=== PATIENT | female | born 1955 | race Caucasian/White ===

== ENCOUNTER 2016-07-09 08:15 | Emergency (ER) | payer BC ==
--- NOTE | 2016-07-09 08:39 | EDM.PDOC ---
ED HPI EYE COMPLAINT - General Chief Complaint: Eye Problems Stated Complaint: COLD Time Seen by Provider: 07/09/16 08:34 - History of Present Illness INITIAL COMMENTS - FREE TEXT/NARRATIVE: HISTORY AND PHYSICAL: History of present illness: Patient 61-year-old female presents with concern of irritation redness to right eye she states this started on Sunday she had a recent cold. Review of systems: As per history of present illness and below otherwise all systems reviewed and negative. Past medical history: As per history of present illness and as reviewed below otherwise noncontributory. Surgical history: As per history of present illness and as reviewed below otherwise noncontributory. Social history: No reported history of drug or alcohol abuse. Family history: As per history of present illness and as reviewed below otherwise noncontributory. Physical exam: HEENT: Atraumatic, normocephalic, pupils reactive, negative for conjunctival pallor or scleral icterus, patient noted to have injected conjunctiva on right no discharge anterior chamber clear mucous membranes moist, throat clear, neck supple, nontender, trachea midline. See nurse Notes for visual acuity Lungs: Clear to auscultation, breath sounds equal bilaterally, chest nontender. Heart: S1S2, regular, negative for clicks, rubs, or JVD. Abdomen: Soft, nondistended, nontender. Negative for masses or hepatosplenomegaly. Negative for costovertebral tenderness. Pelvis: Stable nontender. Genitourinary: Deferred. Rectal: Deferred. Extremities: Atraumatic, negative for cords or calf pain. Neurovascular unremarkable. Neuro: Awake, alert, oriented. Cranial nerves II through XII unremarkable. Cerebellum unremarkable. Motor and sensory unremarkable throughout. Exam nonfocal. Diagnostics: None Therapeutics: None Impression: #1 conjunctivitis right eye Definitive disposition and diagnosis as appropriate pending reevaluation and review of above. - Related Data Allergies/ADRs: Allergies No Known Allergies Allergy (Verified 07/09/16 08:20) Home Meds: Ambulatory Orders Medication Instructions Recorded Confirmed Multivitamin [Multi-Vitamin Daily] 1 each PO DAILY 08/05/13 07/09/16 Calcium Carbonate/Vitamin D3 1 tab PO DAILY 11/05/15 07/09/16 [Calcium 600-Vit D3 400 Tablet] Penny [place]/Linoleic/Gamoleni 1 cap PO DAILY 11/05/15 07/09/16 [Evening [place] 1,000 mg Sftg] Vit D3 & K/Berberine HCl/Hops 1 tab PO DAILY 11/05/15 07/09/16 [Ostera] Past Medical History Other HEENT History: wears glasses Cardiovascular History: Reports: None Respiratory History: Reports: None Gastrointestinal History: Reports: None Genitourinary History: Reports: None 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 Musculoskeletal History: Reports: None Neurological History: Reports: None Psychiatric History: Reports: None Endocrine/Metabolic History: Reports: None Hematologic History: Reports: None Immunologic History: Reports: None Oncologic (Cancer) History: Reports: None Other Oncologic History: removed x3, chest and back Dermatologic History: Reports: None - Infectious Disease History Infectious Disease History: Reports: None - Past Surgical History Head Surgeries/Procedures: Reports: None Respiratory Surgical History: Reports: None GI Surgical History: Reports: Colonoscopy Other Female Surgeries/Procedures: Laparoscopy Endocrine Surgical History: Reports: None Neurological Surgical History: Reports: None Other Musculoskeletal Surgeries/Procedures:: bilateral CTR Social & Family History - Family History Family Medical History: Noncontributory - Tobacco Use Smoking Status *Q: Never Smoker Second Hand Smoke Exposure: No - Caffeine Use Caffeine Use: Reports: Coffee Caffeine Use Comment: 1-2/day - Alcohol Use Days Per Week of Alcohol Use: 1 - Recreational Drug Use Recreational Drug Use: No Drug Use in Last 12 Months: No ED ROS GENERAL - Review of Systems Review Of Systems: ROS reveals no pertinent complaints other than HPI. ED EXAM GENERAL W FULL EYE - Physical Exam Exam: See Below Course - Vital Signs Last Recorded V/S: Last Vital Signs Temp 36.9 C 07/09/16 08:17 Pulse 86 07/09/16 08:17 Resp 16 07/09/16 08:17 BP 121/71 07/09/16 08:17 Pulse Ox 96 07/09/16 08:17 Departure - Departure Time of Disposition: 08:38 Disposition: Home, Self-Care 01 Condition: good Clinical Impression: Conjunctivitis Forms: ED Department Discharge Additional Instructions: The following information is given to patients seen in the emergency department who are being discharged to home. This information is to outline your options for follow-up care. We provide all patients seen in our emergency department with a follow-up referral. The need for follow-up, as well as the timing and circumstances, are variable depending upon the specifics of your emergency department visit. If you don't have a primary care physician on staff, we will provide you with a referral. We always advise you to contact your personal physician following an emergency department visit to inform them of the circumstance of the visit and for follow-up with them and/or the need for any referrals to a consulting specialist. The emergency department will also refer you to a specialist when appropriate. This referral assures that you have the opportunity for followup care with a specialist. All of these measure are taken in an effort to provide you with optimal care, which includes your followup. Under all circumstances we always encourage you to contact your private physician who remains a resource for coordinating your care. When calling for followup care, please make the office aware that this follow-up is from your recent emergency room visit. If for any reason you are refused follow-up, please contact the [facility] emergency department at and asked to speak to the emergency department charge nurse. Tobramycin drops as directed followup primary medical doctor one to 2 days return as needed as discussed
== END 2016-07-09 08:45 | disposition home or self-care (01) ==
LOC: MW.ED 08:15
DX: H10.9 Unspecified conjunctivitis (principal)
CPT/HCPCS: 99283

== ENCOUNTER → 2016-09-18 | Outpatient (CLI) | payer BC ==
--- NOTE | 2016-09-18 16:04 | MY ---
EXAMINATION: Bilateral digital mammography utilizing CAD. HISTORY: Screening exam. Comparison is made to previous studies dated 09/16/2015, 05/14/2014. FINDINGS: Bilateral heterogeneously dense breast tissue. No suspicious calcifications, masses or ar chitectural distortions. No pathologic appearing lymph nodes, no abnormal skin thickening or nipple inversion. CAD highlighted regions appear normal at this time. IMPRESSION: BI-RADS category I - negative mammogram. Continued screening according to ACR-ACS gu idelines suggested. THE FALSE-NEGATIVE RATE OF MAMMOGRAM IS APPROXIMATELY 10%. MANAGEMENT OF A PALPABLE ABNORMALITY MUST BE BASED UPON CLINICAL GROUNDS. SENSITIVITY FOR DETECTION OF ABNORMALITIES IN DENSE BREASTS IS LOW. NOTE: A letter will be sent to the patient regarding findings. [facility] -- SAPNA Trejo [phone] - FAX [phone]
== END ==
LOC: MW.MAM 08:35
PROVIDERS: ATTEND Obstetrics & Gynecology
DX: Z12.31 Encounter for screening mammogram for malignant neoplasm of breast (principal)
CPT/HCPCS: G0202; G0202-26

== ENCOUNTER 2017-04-05 01:05 | Emergency (ER) | payer BC ==
--- NOTE | 2017-04-05 01:15 | EDM.PDOC ---
ED HPI GENERAL MEDICAL PROBLEM - General Chief Complaint: Lower Extremity Injury/Pain Stated Complaint: PAIN RT TOE Time Seen by Provider: 04/05/17 01:15 - History of Present Illness INITIAL COMMENTS - FREE TEXT/NARRATIVE: HISTORY AND PHYSICAL: History of present illness: Patient 61-year-old white female presents with concern of acute right foot injury in which he injured fourth digit over right foot this was prior to arrival she denies other trauma or concern Review of systems: As per history of present illness and below otherwise all systems reviewed and negative. Past medical history: As per history of present illness and as reviewed below otherwise noncontributory. Surgical history: As per history of present illness and as reviewed below otherwise noncontributory. Social history: No reported history of drug or alcohol abuse. Family history: As per history of present illness and as reviewed below otherwise noncontributory. Physical exam: HEENT: Atraumatic, normocephalic, pupils reactive, negative for conjunctival pallor or scleral icterus, mucous membranes moist, throat clear, neck supple, nontender, trachea midline. Lungs: Clear to auscultation, breath sounds equal bilaterally, chest nontender. Heart: S1S2, regular, negative for clicks, rubs, or JVD. Abdomen: Soft, nondistended, nontender. Negative for masses or hepatosplenomegaly. Negative for costovertebral tenderness. Pelvis: Stable nontender. Genitourinary: Deferred. Rectal: Deferred. Extremities: Patient has tenderness to palpation of the fourth digit with a slight deformity suggestive of fracture neurovascular exam is unremarkable. Neuro: Awake, alert, oriented. Cranial nerves II through XII unremarkable. Cerebellum unremarkable. Motor and sensory unremarkable throughout. Exam nonfocal. Diagnostics: X-ray right foot Therapeutics: Raman tape postop shoe Impression: #1 acute injury right foot (fourth digit) Definitive disposition and diagnosis as appropriate pending reevaluation and review of above. - Related Data Allergies Allergy/AdvReac Type Severity Reaction Status Date / Time No Known Allergies Allergy Verified 04/05/17 01:12 Home Meds: Home Meds Multivitamin [Multi-Vitamin Daily] 1 each PO DAILY 08/05/13 [History] Calcium Carbonate/Vitamin D3 [Calcium 600-Vit D3 400 Tablet] 1 tab PO DAILY 05/22 [History] Penny [place]/Linoleic/Gamoleni [Evening [place] 1,000 mg Sftg] 1 cap PO DAILY 11/05/15 [History] Vit D3 & K/Berberine HCl/Hops [Ostera] 1 tab PO DAILY 11/05/15 [History] Past Medical History Other HEENT History: wears glasses Cardiovascular History: Reports: None Respiratory History: Reports: None Gastrointestinal History: Reports: None Genitourinary History: Reports: None 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: Reports: 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 Musculoskeletal History: Reports: None Neurological History: Reports: None Psychiatric History: Reports: None Endocrine/Metabolic History: Reports: None Hematologic History: Reports: None Immunologic History: Reports: None Oncologic (Cancer) History: Reports: None Other Oncologic History: removed x3, chest and back Dermatologic History: Reports: None - Infectious Disease History Infectious Disease History: Reports: None - Past Surgical History Female Surgical History: Reports: Hysterectomy, Oophorectomy, Other (See Below) Musculoskeletal Surgical History: Reports: Carpal Tunnel Social & Family History - Family History Family Medical History: Noncontributory - Tobacco Use Smoking Status *Q: Never Smoker Second Hand Smoke Exposure: No - Caffeine Use Caffeine Use: Reports: Coffee Caffeine Use Comment: 1-2/day - Alcohol Use Days Per Week of Alcohol Use: 1 - Recreational Drug Use Recreational Drug Use: No Drug Use in Last 12 Months: No Review of Systems - Review of Systems Review Of Systems: ROS reveals no pertinent complaints other than HPI. ED EXAM, GENERAL - Physical Exam Exam: See Below (See dictation) Course - Vital Signs Last Recorded V/S: Last Vital Signs Temp 36.2 C 04/05/17 01:13 Pulse 70 04/05/17 01:13 Resp 18 04/05/17 01:13 BP 138/74 04/05/17 01:13 Pulse Ox 98 04/05/17 01:13 - Orders/Labs/Meds Orders: Active Orders 24 hr Category Date Time Status Foot Comp Min 3V Rt [CR] Stat Exams 04/05/17 01:09 Taken Departure - Departure Time of Disposition: 01:15 Disposition: Home, Self-Care 01 Condition: Good Clinical Impression: Foot injury - Discharge Information Referrals: PCP,None [Primary Care Provider] - Forms: ED Department Discharge Additional Instructions: The following information is given to patients seen in the emergency department who are being discharged to home. This information is to outline your options for follow-up care. We provide all patients seen in our emergency department with a follow-up referral. The need for follow-up, as well as the timing and circumstances, are variable depending upon the specifics of your emergency department visit. If you don't have a primary care physician on staff, we will provide you with a referral. We always advise you to contact your personal physician following an emergency department visit to inform them of the circumstance of the visit and for follow-up with them and/or the need for any referrals to a consulting specialist. The emergency department will also refer you to a specialist when appropriate. This referral assures that you have the opportunity for followup care with a specialist. All of these measure are taken in an effort to provide you with optimal care, which includes your followup. Under all circumstances we always encourage you to contact your private physician who remains a resource for coordinating your care. When calling for followup care, please make the office aware that this follow-up is from your recent emergency room visit. If for any reason you are refused follow-up, please contact the [facility] emergency department at and asked to speak to the emergency department charge nurse. Bebo Guerrero [facility] - Podiatry [address] [place] [address] Fax: [phone] Motrin/Tylenol as directed postop she was discussed follow-up podiatry clinic above call to schedule appointment return as needed as discussed - My Orders Last 24 Hours: My Active Orders 04/05/17 01:09 Foot Comp Min 3V Rt [CR] Stat - Assessment/Plan Last 24 Hours: My Active Orders 04/05/17 01:09 Foot Comp Min 3V Rt [CR] Stat
[2017-04-05 02:10] VITALS: BP 127/73
--- NOTE | 2017-04-05 10:39 | CR ---
EXAM DATE: 04/05/17 PATIENT'S AGE: 61 Patient: DARA CAROLINA Facility: [place], [place] Site . Site : 1955 Study: XRay Extremity Right [id number]/30/2017 1:33:08 AM Ordering Physician: Doctor Giordano Final Report: INDICATION: Trauma 4th and 5th digits right foot TECHNIQUE: Three views right foot COMPARISON: None FINDINGS: Bones: Alignment is normal. Though definitive fractures. However questionable angulation of the distal proximal phalanx of the 4th digit. Correlate with point tenderness. Joint spaces: Unremarkable. Soft tissues: Unremarkable. IMPRESSION: No definitive fractures. However questionable angulation of the distal proximal phalanx of the 4th digit. Correlate with point tenderness. Dictated by Jaime Doll MD @ 04/05/2017 1:39:52 AM Dictated by: Jaime Doll MD @ 04/05/2017 01:40:01 (Electronic Signature) Report Signed by Proxy. JAVY
== END 2017-04-05 02:14 | disposition home or self-care (01) ==
LOC: MW.ED 01:05
DX: S99.921A Unspecified injury of right foot, initial encounter (principal); X58.XXXA Exposure to other specified factors, initial encounter
CPT/HCPCS: 73630-26-RT; 73630-RT; 99282; 99283

== ENCOUNTER 2018-09-03 08:23 | Day surgery (SDC) | payer BC ==
[~2018-09-03 08:23] MED LIST: Sodium Chloride 0.9% 10 ML SDV IV PRN; Sodium Chloride 0.9% 10 ML Syringe FLUSH PRN; Sodium Chloride 0.9% 2.5 ML Syringe FLUSH PRN
[2018-09-03] MEDS: Lactated Ringers 1,000 ML IV SCH ×2 (08:51→08:52)
--- NOTE | 2018-09-03 09:23 | PCM.PREANE ---
Preanesthetic Assessment - Anesthesia/Transfusion/Family Hx Anesthesia History: Prior Anesthesia Reaction Other Type of Anesthesia Reaction Comment: Patient denies any known problem with anesthesia,no known fmly hx Family History of Anesthesia Reaction: No Transfusion History: No Prior Transfusion(s) - Review of Systems General: No Symptoms Pulmonary: No Symptoms Cardiovascular: No Symptoms Gastrointestinal: No Symptoms Neurological: No Symptoms - Physical Assessment NPO Status Date: 09/02/18 NPO Status Time: 21:00 O2 Sat by Pulse Oximetry: 99 Respiratory Rate: 16 Vital Signs: Last Vital Signs Temp 97.7 F 09/03/18 08:46 Pulse 67 09/03/18 08:46 Resp 16 09/03/18 08:46 BP 110/67 09/03/18 08:46 Pulse Ox 99 09/03/18 08:46 Height: 5 ft 4 in Weight: 68.946 kg ASA Class: 2 Mental Status: Alert & Oriented x3 Airway Class: Mallampati = 2 Dentition: Reports: Normal Dentition Thyro-Mental Finger Breadths: 3 Mouth Opening Finger Breadths: 3 ROM/Head Extension: Full Lungs: Clear to Auscultation, Normal Respiratory Effort Cardiovascular: Regular Rate, Regular Rhythm - Allergies Allergies/Adverse Reactions: Allergies Allergy/AdvReac Type Severity Reaction Status Date / Time adhesive tape Allergy Rash Verified 08/30/18 14:25 - Acknowledgements Anesthesia Type Planned: MAC Pt an Appropriate Candidate for the Planned Anesthesia: Yes Alternatives and Risks of Anesthesia Discussed w Pt/Guardian: Yes Pt/Guardian Understands and Agrees with Anesthesia Plan: Yes PreAnesthesia Questionnaire HEENT History: Reports: Other (See Below) Other HEENT History: wears glasses, has artificial left upper front tooth Cardiovascular History: Reports: None Respiratory History: Reports: None Gastrointestinal History: Reports: None Genitourinary History: Reports: None 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 Musculoskeletal History: Reports: Fracture Other Musculoskeletal History: hx of fx toe Neurological History: Reports: None Psychiatric History: Reports: None Endocrine/Metabolic History: Reports: None Hematologic History: Reports: None Immunologic History: Reports: None Oncologic (Cancer) History: Reports: Basal Cell Carcinoma Other Oncologic History: several skin cancers removed Dermatologic History: Reports: None - Infectious Disease History Infectious Disease History: Reports: None - Past Surgical History Head Surgeries/Procedures: Reports: None HEENT Surgical History: Reports: None Respiratory Surgical History: Reports: None GI Surgical History: Reports: Colonoscopy Female Surgical History: Reports: Cystectomy, Hysterectomy, Other (See Below) Other Female Surgeries/Procedures: hx of pelvic laparoscopies x2 Endocrine Surgical History: Reports: None Neurological Surgical History: Reports: None Musculoskeletal Surgical History: Reports: Carpal Tunnel, Other (See Below) Other Musculoskeletal Surgeries/Procedures:: bilateral CTR, de Quervains release right hand Oncologic Surgical History: Reports: None - SUBSTANCE USE Smoking Status *Q: Never Smoker Recreational Drug Use History: No - HOME MEDS Home Medications: Home Meds Calcium Carbonate/Vitamin D3 [Calcium 600-Vit D3 400 Tablet] 1 tab PO DAILY 05/22 [History] Biotin 1 tab PO DAILY 08/30/18 [History] Cholecalciferol (Vitamin D3) [Vitamin D3] 1,000 unit PO DAILY 08/30/18 [History] Multivitamin [Daily Multiple Vitamin] 1 tab PO DAILY 08/30/18 [History] - CURRENT (IN HOUSE) MEDS Current Meds: Current Medications Lactated Ringer's (Ringers, Lactated) 1,000 mls @ 125 mls/hr IV ASDIRECTED [facility] Last Admin: 09/03/18 08:52 Dose: 125 mls/hr Sodium Chloride (Saline Flush) 10 ml FLUSH ASDIRECTED PRN PRN Reason: Keep Vein Open Sodium Chloride (Saline Flush) 2.5 ml FLUSH ASDIRECTED PRN PRN Reason: Keep Vein Open Sodium Chloride (Saline Flush) 10 ml FLUSH ASDIRECTED PRN PRN Reason: Keep Vein Open Sodium Chloride (Saline Flush) 2.5 ml FLUSH ASDIRECTED PRN PRN Reason: Keep Vein Open Sodium Chloride (Normal Saline) 10 ml IV ASDIRECTED PRN PRN Reason: IV Use
[2018-09-03] MEDS ORDERED: Propofol 200 MG/20 ML SDV ONE (10:28)
[2018-09-03] MEDS ORDERED: Midazolam 1 MG/ML 2 ML SDV ONE (11:21)
--- NOTE | 2018-09-03 11:38 | PCM.OPNOTE ---
- General Post-Op/Procedure Note Date of Surgery/Procedure: 09/03/18 Operative Procedure(s): Screening colonoscopy Findings: Sigmoid colon polyp #1 small, sigmoid colon polyp #2 ~ 1cm in size and on a stalk Pre Op Diagnosis: screening colonoscopy Post-Op Diagnosis: Sigmoid colon polyps x 2 Anesthesia Technique: MAC Primary Surgeon: Joselyn Jennings Condition: Good
--- NOTE | 2018-09-03 11:52 | PCM.POSTAN ---
POST ANESTHESIA ASSESSMENT - MENTAL STATUS Mental Status: Alert, Oriented - RESPIRATORY Respiratory Status: Respiratory Rate WNL, Airway Patent, O2 Saturation Stable - CARDIOVASCULAR CV Status: Pulse Rate WNL, Blood Pressure Stable - GASTROINTESTINAL GI Status: No Symptoms - POST OP HYDRATION Hydration Status: Adequate & Stable
--- NOTE | 2018-09-03 11:54 | PCM48HPAN ---
Post Anesthesia Note - EVALUATION WITHIN 48HRS OF ANESTHETIC Vital Signs in Normal Range: Yes Patient Participated in Evaluation: Yes Respiratory Function Stable: Yes Airway Patent: Yes Cardiovascular Function Stable: Yes Hydration Status Stable: Yes Pain Control Satisfactory: Yes Nausea and Vomiting Control Satisfactory: Yes Mental Status Recovered: Yes Pulse Rate: 52 SaO2: 97 Resp Rate: 15 Blood Pressure: 106/62
[2018-09-03 12:04] VITALS: BP 114/62
--- NOTE | 2018-09-03 17:00 | OR ---
SURGEON: YUVAL STOUT MD DATE OF PROCEDURE: 09/03/2018 PREOPERATIVE DIAGNOSIS: Screening colonoscopy. POSTOPERATIVE DIAGNOSIS: Sigmoid colon polyps x2. PROCEDURE PERFORMED: Screening colonoscopy with biopsies. ANESTHESIA: MAC. INSTRUMENT USED: Olympus colonoscope. EXTENT OF EXAM: To the cecum. PREPARATION: Good. LIMITATIONS: None. INDICATION FOR EXAMINATION: The patient is a 63-year-old female who presents for a repeat 10-year colonoscopy. I explained the procedure, expected perioperative course, and risks including bleeding, infection, or damage to surrounding structures including perforation. The patient verbalized understanding and wishes to proceed. PROCEDURE IN DETAIL: The patient was brought into the endoscopy suite and placed in the left lateral decubitus position. A time-out was completed verifying the patient's name, age, date of , allergies, and procedure to be performed. Monitored anesthesia care was induced and continuous oxygen was provided via nasal cannula throughout the procedure. After adequate sedation was achieved, a digital rectal exam was performed. This exam was within normal limits. A well lubricated colonoscope was inserted into the rectum and advanced under direct visualization to the level of the cecum. The cecum was identified by both visual and anatomic landmarks. A photograph was taken of the cecal cap; however I was unable to retroflex the scope within the cecum due to looping of the scope more proximally. The scope was fully withdrawn while examining the color, texture, anatomy, and integrity of the mucosa from the cecum to the anal canal. The patient was found to have an approximately 1 cm pedunculated polyp on a stalk at 25 cm. This was removed using a hot snare. It was sent to Pathology, labeled as sigmoid colon polyp #2. She did have a smaller polyp that was removed in piecemeal fashion using a cold biopsy forceps that was distal to this and was labeled as sigmoid colon polyp #1. The scope was then brought into the rectum and retroflexed to allow visualization of the anal canal opening. This appeared normal and a photograph was taken. The scope was straightened out and fully withdrawn. The cecum to anus time was 11 minutes. The patient tolerated the procedure well and was transferred to the PACU in stable condition. ENDOSCOPIC DIAGNOSIS: Sigmoid colon polyps x2. RECOMMENDATIONS: Follow up in clinic in 2 weeks. NICCI HAYNES /[id number]
== END 2018-09-03 12:20 | disposition home or self-care (01) ==
LOC: MW.SDS 08:23
PROVIDERS: ATTEND Surgery
DX: Z12.11 Encounter for screening for malignant neoplasm of colon (principal); D12.5 Benign neoplasm of sigmoid colon; K63.5 Polyp of colon; Z86.39 Personal history of other endocrine, nutritional and metabolic disease; Z91.048 Other nonmedicinal substance allergy status
CPT/HCPCS: 45380; 45385; 88305; J2001; J2250; J2704; J7120

== ENCOUNTER 2019-12-22 17:37 | Emergency (ER) | payer BC ==
[2019-12-22] MEDS ORDERED: Acetaminophen/oxyCODONE 325-5 MG Tab PO ONE (17:55)
--- NOTE | 2019-12-22 18:00 | EDM.PDOC ---
ED HPI GENERAL MEDICAL PROBLEM - General Stated Complaint: RIGHT ARM INJURY Time Seen by Provider: 12/22/19 17:42 Source of Information: Reports: Patient History Limitations: Reports: No Limitations - History of Present Illness INITIAL COMMENTS - FREE TEXT/NARRATIVE: 64F presents after a fall. Fell down two steps landing on R arm. Currently notes pain in upper R arm and numb/tingling sensation. Denies hitting head or LOC. Not on any blood thinning medications. right shoulder/elbow Pain Score (Numeric/FACES): 10 - Related Data Allergies Allergy/AdvReac Type Severity Reaction Status Date / Time adhesive tape Allergy Rash Verified 12/22/19 18:16 Home Meds: Home Meds Calcium Carbonate/Vitamin D3 [Calcium 600-Vit D3 400 Tablet] 1 tab PO DAILY 11/05/15 [History] Biotin 1 tab PO DAILY 08/30/18 [History] Cholecalciferol (Vitamin D3) [Vitamin D3] 1,000 unit PO DAILY 08/30/18 [History] Multivitamin [Daily Multiple Vitamin] 1 tab PO DAILY 08/30/18 [History] Acetaminophen/oxyCODONE [Percocet 325-5 MG] 1 tab PO Q4H PRN #18 tab 12/22/19 [Rx] Ibuprofen [Motrin] 600 mg PO Q6H PRN 10 Days #28 tab 12/22/19 [Rx] Past Medical History HEENT History: Reports: None Other HEENT History: wears glasses Cardiovascular History: Reports: None Respiratory History: Reports: None Gastrointestinal History: Reports: None Genitourinary History: Reports: None REGISTERED NURSE STEP DOWN History: Reports: None Musculoskeletal History: Reports: None Other Musculoskeletal History: Tendonitis Neurological History: Reports: None Psychiatric History: Reports: None Endocrine/Metabolic History: Reports: None Hematologic History: Reports: None Immunologic History: Reports: None Oncologic (Cancer) History: Reports: None Other Oncologic History: removed x3, chest and back Dermatologic History: Reports: None - Infectious Disease History Infectious Disease History: Reports: None - Past Surgical History Female Surgical History: Reports: Hysterectomy, Oophorectomy, Other (See Below) Other Female Surgeries/Procedures: Laparoscopy Musculoskeletal Surgical History: Reports: Carpal Tunnel Other Musculoskeletal Surgeries/Procedures:: bilateral CTR Social & Family History - Family History Family Medical History: Noncontributory - Caffeine Use Caffeine Use: Reports: Coffee Caffeine Use Comment: 1-2/day ED ROS GENERAL - Review of Systems Review Of Systems: Comprehensive ROS is negative, except as noted in HPI. 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 ) Neurological: Alert Psychiatric: Normal Affect, Normal Mood Skin Exam: Warm, Dry ED GENERAL MEDICAL PROCEDURES - Joint Reduction Right Shoulder Sedation: Other (fentanyl 100mch) Pre-procedure NV status: Normal Post-procedure NV status: Normal Technique: Traction/Counter Traction Number of Attempts: 2 Post-Reduction Imaging: Acceptably Reduced, Unacceptably Reduced Joint Reduction Complications: No - Splinting Right Upper Extremity Pre-procedure NV status: Abnormal (abnormal sensation R 5th and 4th digits consisetn with ulnar N injury) Post-procedure NV status: Normal Splint Type: Custom Splint Material: Fiberglass Splint Design: Other (long arm) Applied & Form Fitted By: Nurse Provider Post-Splint Application NV Check: NV Status Normal, Good Position Complications: No Course - Vital Signs Last Recorded V/S: Last Vital Signs Temp 95.9 F L 12/22/19 18:24 Pulse 69 12/22/19 19:41 Resp 16 12/22/19 19:41 BP 156/80 H 12/22/19 19:41 Pulse Ox 100 12/22/19 19:41 - Orders/Labs/Meds Orders: Active Orders 24 hr Category Date Time Status Splinting [RC] ASDIRECTED Care 12/22/19 18:47 Active Shoulder 1V Rt [CR] Stat Exams 12/22/19 19:12 Ordered Shoulder 1V Rt [CR] Stat Exams 12/22/19 19:34 Ordered DME for Discharge [COMM] Stat Oth 12/22/19 18:46 Ordered Meds: Medications Discontinued Medications Generic Name Dose Route Start Last Admin Trade Name Freq PRN Reason Stop Dose Admin Fentanyl 100 mcg 12/22/19 18:45 12/22/19 18:57 Fentanyl IVPUSH 12/22/19 18:46 100 mcg ONETIME ONE Administration Fentanyl 100 mcg 12/22/19 19:22 12/22/19 19:27 Fentanyl IVPUSH 12/22/19 19:23 100 mcg ONETIME ONE Administration Oxycodone/Acetaminophen 1 tab 12/22/19 17:55 12/22/19 18:04 Percocet 325-5 Mg PO 12/22/19 17:56 1 tab ONETIME ONE Administration - Re-Assessments/Exams Free Text/Narrative Re-Assessment/Exam: 12/22/19 18:00 Pt presents with R arm injury. Will get humerus XR and reassess. Free Text/Narrative Re-Assessment/Exam: 12/22/19 18:[address] Donte France at [facility] who notes fracture/dislocation of glenohumeral joint will likely require surgical repair but can be reduced as typical shoulder dislocation and placed in long arm splint/shoudler immobilizer w/ f/u in his office sometime this week. 12/22/19 19:43 Initial relocation was successful, but it dislocated again during splitn application. Additional attempt was made and unsuccessful. Will transfer to Dr. Armas at [facility] with Rom[facility] consulting. Patient agreeable with plan. Departure - Departure Time of Disposition: 19:42 Disposition: DC/Tfer to Acute Hospital 02 Condition: Good Clinical Impression: Fracture of elbow Qualifiers: Encounter type: initial encounter Fracture type: closed Laterality: right Qualified Code(s): S42.401A - Unspecified fracture of lower end of right humerus, initial encounter for closed fracture Shoulder dislocation Qualifiers: Encounter type: initial encounter Laterality: right Qualified Code(s): S43.004A - Unspecified dislocation of right shoulder joint, initial encounter - Discharge Information Prescriptions: Ibuprofen [Motrin] 600 mg PO Q6H PRN 10 Days #28 tab PRN Reason: Pain Acetaminophen/oxyCODONE [Percocet 325-5 MG] 1 tab PO Q4H PRN #18 tab PRN Reason: Pain Instructions: How to Use a Shoulder Immobilizer, Shoulder Dislocation, [id number] Referrals: Donte France [Other] Additional Instructions: Transfer to [place] Sepsis Event Note (ED) - Focused Exam Vital Signs: Vital Signs Temp Pulse Resp BP Pulse Ox 08/17/20 19:41 69 16 156/80 H 100 12/22/19 19:18 61 16 153/80 H 100 12/22/19 18:24 95.9 F L 56 L 20 112/60 95 - My Orders Last 24 Hours: My Active Orders 12/22/19 18:46 DME for Discharge [COMM] Stat 12/22/19 18:47 Splinting [RC] ASDIRECTED 12/22/19 19:12 Shoulder 1V Rt [CR] Stat 12/22/19 19:34 Shoulder 1V Rt [CR] Stat - Assessment/Plan Last 24 Hours: My Active Orders 12/22/19 18:46 DME for Discharge [COMM] Stat 12/22/19 18:47 Splinting [RC] ASDIRECTED 12/22/19 19:12 Shoulder 1V Rt [CR] Stat 12/22/19 19:34 Shoulder 1V Rt [CR] Stat
--- NOTE | 2019-12-22 18:34 | CR ---
Right humerus: 2 views of the right humerus were obtained. Lateral view of the right elbow also obtained. Findings: Dislocation is noted within the humerus. Fracture is noted off the humeral head which shows displacement. Olecranon process fracture is seen which shows displacement. Soft tissue swelling is noted. Impression: 1. Fracture dislocation within the glenohumeral joint. 2. Displaced olecranon process fracture also noted. Diagnostic code #5 This report was dictated in MDT
[2019-12-22] MEDS ORDERED: fentaNYL 50 MCG/ML SDV IVPUSH ONE ×2 (18:45→19:22)
[2019-12-22 19:42] VITALS: BP 156/80; PULSE 69
--- NOTE | 2019-12-22 20:03 | CR ---
Right shoulder: Single AP portable view of the right shoulder was obtained. Comparison: Prior right humerus study performed earlier on the same day (6:05 PM). Fracture and dislocation is again noted within the proximal humeral head. No reduction is seen. Impression: 1. Stable fracture and dislocation. No reduction. Diagnostic code #3 This report was dictated in MDT
--- NOTE | 2019-12-22 20:04 | CR ---
Right shoulder: Single AP view of the right shoulder was obtained. Comparison: Previous right shoulder study performed earlier on the same day (7:20 PM). Fracture within the humeral head again noted. Dislocation remains stable. No additional abnormality is appreciated. Impression: 1. Fracture and dislocation remains. No reduction is seen. Diagnostic code #3 This report was dictated in MDT
[2019-12-22] MEDS ORDERED: Ondansetron 4 MG/2 ML SDV IVPUSH ONE (20:14)
[2019-12-22] MEDS ORDERED: HYDROmorphone 2 MG/ML Syringe IVPUSH ONE (20:24)
== END 2019-12-22 20:30 ==
LOC: MW.ED 17:37
DX: S43.004A Unspecified dislocation of right shoulder joint, initial encounter (principal); S52.021A Displaced fracture of olecranon process without intraarticular extension of right ulna, initial encounter for closed fracture; Z91.048 Other nonmedicinal substance allergy status; Z79.899 Other long term (current) drug therapy; W10.9XXA Fall (on) (from) unspecified stairs and steps, initial encounter
CPT/HCPCS: 73020; 73060; 96374; 96375; 99284; A9270; J1170; J2405; J3010; 99283

== ENCOUNTER 2020-08-31 06:29 | Day surgery (SDC) | payer BC ==
[~2020-08-31 06:29] MED LIST changes: +Lactated Ringers 1,000 ML IV SCH
[2020-08-31] MEDS ORDERED: Lidocaine 2% 5 ML SDV ONE (06:54)
[2020-08-31] MEDS ORDERED: fentaNYL 100 MCG/2 ML SDV ONE (06:55)
[2020-08-31] MEDS ORDERED: Propofol 200 MG/20 ML SDV ONE (06:55)
--- NOTE | 2020-08-31 07:16 | PCM.PREANE ---
Preanesthetic Assessment - Anesthesia/Transfusion/Family Hx Anesthesia History: Prior Anesthesia Without Reaction Other Type of Anesthesia Reaction Comment: Patient denies any known problem with anesthesia,no known fmly hx Family History of Anesthesia Reaction: No Transfusion History: No Prior Transfusion(s) - Review of Systems General: No Symptoms Pulmonary: No Symptoms Cardiovascular: No Symptoms Gastrointestinal: No Symptoms Neurological: No Symptoms, Dizziness, Gait Disturbance Other: Reports: None - Physical Assessment NPO Status Date: 08/31/20 NPO Status Time: 00:00 Vital Signs: Last Vital Signs Temp 96.4 F L 08/31/20 06:32 Pulse 83 08/31/20 06:32 Resp 15 08/31/20 06:32 BP 112/67 08/31/20 06:32 Pulse Ox 95 08/31/20 06:32 Height: 5 ft 4 in Weight: 154 lb ASA Class: 3 Mental Status: Alert & Oriented x3 Airway Class: Mallampati = 1 Dentition: Reports: Normal Dentition Thyro-Mental Finger Breadths: 6 ROM/Head Extension: Full Lungs: Clear to Auscultation Cardiovascular: Regular Rate - Allergies Allergies/Adverse Reactions: Allergies Allergy/AdvReac Type Severity Reaction Status Date / Time No Known Allergies Allergy Verified 08/25/20 10:37 - Blood Blood Available: No - Acknowledgements Anesthesia Type Planned: General Anesthesia, MAC Pt an Appropriate Candidate for the Planned Anesthesia: Yes Alternatives and Risks of Anesthesia Discussed w Pt/Guardian: Yes Pt/Guardian Understands and Agrees with Anesthesia Plan: Yes PreAnesthesia Questionnaire HEENT History: Reports: None Other HEENT History: wears glasses Cardiovascular History: Reports: None Respiratory History: Reports: None Gastrointestinal History: Reports: None Genitourinary History: Reports: None PROMOTIONS 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: Reports: None Musculoskeletal History: Reports: None Other Musculoskeletal History: Tendonitis Neurological History: Reports: None Psychiatric History: Reports: None Endocrine/Metabolic History: Reports: None Hematologic History: Reports: None Immunologic History: Reports: None Oncologic (Cancer) History: Reports: None Other Oncologic History: removed x3, chest and back Dermatologic History: Reports: None - Infectious Disease History Infectious Disease History: Reports: None - Past Surgical History Head Surgeries/Procedures: Reports: None HEENT Surgical History: Reports: None Cardiovascular Surgical History: Reports: None Respiratory Surgical History: Reports: None GI Surgical History: Reports: Colonoscopy Female Surgical History: Reports: Hysterectomy, Oophorectomy, Other (See Below) Other Female Surgeries/Procedures: Laparoscopy Endocrine Surgical History: Reports: None Neurological Surgical History: Reports: None Musculoskeletal Surgical History: Reports: Carpal Tunnel Other Musculoskeletal Surgeries/Procedures:: bilateral CTR Oncologic Surgical History: Reports: None Dermatological Surgical History: Reports: Skin Biopsy - SUBSTANCE USE Tobacco Use Status *Q: Never Tobacco User Recreational Drug Use History: No - HOME MEDS Home Medications: Home Meds Biotin 10 mg PO DAILY 08/30/18 [History] Cholecalciferol (Vitamin D3) [Vitamin D3] 1,000 unit PO DAILY 08/30/18 [History] Multivitamin [Daily Multiple Vitamin] 1 tab PO DAILY 08/30/18 [History] Alendronate Sodium 70 mg PO WEEKLY 08/25/20 [History] Collagenase Clostridium Hist. [Collagenase] 1 dose PO DAILY 08/25/20 [History] hydroCHLOROthiazide [Hydrochlorothiazide] 12.5 mg PO DAILY 08/25/20 [History] - CURRENT (IN HOUSE) MEDS Current Meds: Current Medications Lactated Ringer's (Ringers, Lactated) 1,000 mls @ 125 mls/hr IV ASDIRECTED RUTH Last Admin: 08/31/20 06:50 Dose: 125 mls/hr Documented by: Sodium Chloride (Sodium Chloride 0.9% 10 Ml Syringe) 10 ml FLUSH ASDIRECTED PRN PRN Reason: Keep Vein Open Sodium Chloride (Sodium Chloride 0.9% 2.5 Ml Syringe) 2.5 ml FLUSH ASDIRECTED PRN PRN Reason: Keep Vein Open Sodium Chloride (Sodium Chloride 0.9% 10 Ml Syringe) 10 ml FLUSH ASDIRECTED PRN PRN Reason: Keep Vein Open Sodium Chloride (Sodium Chloride 0.9% 2.5 Ml Syringe) 2.5 ml FLUSH ASDIRECTED PRN PRN Reason: Keep Vein Open Sodium Chloride (Sodium Chloride 0.9% 10 Ml Sdv) 10 ml IV ASDIRECTED PRN PRN Reason: IV Use Discontinued Medications Fentanyl (Fentanyl 100 Mcg/2 Ml Sdv) Confirm Administered Dose 100 mcg .ROUTE .STK-MED ONE Stop: 08/31/20 06:56 Lidocaine (Lidocaine 2% 5 Ml Sdv) Confirm Administered Dose 5 ml .ROUTE .STK-MED ONE Stop: 08/31/20 06:55 Propofol (Propofol 200 Mg/20 Ml Sdv) Confirm Administered Dose 600 mg .ROUTE .[facility] ONE Stop: 08/31/20 06:56
--- NOTE | 2020-08-31 08:37 | PCM.OPNOTE ---
- General Post-Op/Procedure Note Date of Surgery/Procedure: 08/31/20 Operative Procedure(s): Diagnostic colonoscopy Findings: Normal colonoscopy Pre Op Diagnosis: Diagnostic colonoscopy Post-Op Diagnosis: Normal colonoscopy Anesthesia Technique: MAC Primary Surgeon: Joselyn Jennings Condition: Good
[2020-08-31 08:53] VITALS: BP 120/76; PULSE 62
--- NOTE | 2020-08-31 09:15 | PCM.POSTAN ---
POST ANESTHESIA ASSESSMENT - MENTAL STATUS Mental Status: Alert, Oriented - VITAL SIGNS Vital Signs: Last Vital Signs Temp 97.0 F 08/31/20 08:48 Pulse 62 08/31/20 08:48 Resp 14 08/31/20 08:48 BP 120/76 08/31/20 08:48 Pulse Ox 99 08/31/20 08:48 - RESPIRATORY Respiratory Status: Respiratory Rate WNL, Airway Patent, O2 Saturation Stable - CARDIOVASCULAR CV Status: Pulse Rate WNL, Blood Pressure Stable - GASTROINTESTINAL GI Status: No Symptoms - POST OP HYDRATION Hydration Status: Adequate & Stable
--- NOTE | 2020-08-31 09:16 | PCM48HPAN ---
Post Anesthesia Note - EVALUATION WITHIN 48HRS OF ANESTHETIC Vital Signs in Normal Range: Yes Patient Participated in Evaluation: Yes Respiratory Function Stable: Yes Airway Patent: Yes Cardiovascular Function Stable: Yes Hydration Status Stable: Yes Pain Control Satisfactory: Yes Nausea and Vomiting Control Satisfactory: Yes Mental Status Recovered: Yes Vital Signs: Last Vital Signs Temp 97.0 F 08/31/20 08:48 Pulse 62 08/31/20 08:48 Resp 14 08/31/20 08:48 BP 120/76 08/31/20 08:48 Pulse Ox 99 08/31/20 08:48
--- NOTE | 2020-08-31 15:14 | OR ---
SURGEON: JOSELYN JENNINGS MD DATE OF PROCEDURE: 08/31/2020 PREOPERATIVE DIAGNOSIS: History of colon polyps. POSTOPERATIVE DIAGNOSIS: History of colon polyps. PROCEDURE PERFORMED: Diagnostic colonoscopy. PRIMARY SURGEON: Joselyn Jennings MD ANESTHESIA: MAC. INSTRUMENT USED: Olympus colonoscope. EXTENT OF THE EXAM: To the cecum. PREPARATION: Good. LIMITATIONS: None. 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 She is here for repeat colonoscopy. The patient and I discussed the procedure, expected perioperative course, and the risks. She verbalized understanding and wishes to proceed. PROCEDURE IN DETAIL: The patient was brought to the endoscopy suite and placed in the left lateral decubitus position. A time-out was completed verifying the patient's name, age, date of , allergies, and procedure to be performed. Monitored anesthesia care was induced and continuous oxygen was provided via nasal cannula throughout the procedure. After adequate sedation was achieved, a digital rectal exam was performed. This exam was within normal limits. A well-lubricated colonoscope was inserted into the rectum and advanced under direct visualization to the level of the cecum. The cecum was identified by both visual and anatomic landmarks. A photograph was taken of the cecal cap as well as with the scope retroflexed within the cecum. The scope was then fully withdrawn while examining the color, texture, anatomy, and integrity of mucosa from the cecum to the anal canal. The findings were consistent with normal colonic mucosa. I saw no evidence of recurrence throughout the sigmoid colon. The scope was then brought into the rectum and retroflexed to allow visualization of the anal canal opening. This appeared normal, and a photograph taken. The scope was straightened out and fully withdrawn. The cecum to anus time was 15 minutes. The patient tolerated the procedure well and was transferred to the PACU in stable condition. ENDOSCOPIC DIAGNOSIS: Normal colonoscopy. RECOMMENDATIONS: Follow up in clinic in 5 years. NICCI HAYNES /[id number]
== END 2020-08-31 09:15 | disposition home or self-care (01) ==
LOC: MW.SDS 06:29
PROVIDERS: ATTEND Surgery
DX: Z12.11 Encounter for screening for malignant neoplasm of colon (principal); N18.9 Chronic kidney disease, unspecified; M81.0 Age-related osteoporosis without current pathological fracture; Z79.899 Other long term (current) drug therapy; Z86.010 Personal history of colon polyps; Z98.890 Other specified postprocedural states; Z80.0 Family history of malignant neoplasm of digestive organs
CPT/HCPCS: 45378; J2704; J3010; J7120; 00812

== ENCOUNTER 2022-10-02 14:00 | Emergency (ER) | payer MEDICARE, BC ==
[2022-10-02] MEDS ORDERED: Diphtheria,Pertussis(Acell),Tetanus Vaccine 0.5 ML Syringe IM ONE (14:26)
[2022-10-02] MEDS ORDERED: Lidocaine/Epineph/Tetracaine 3 ML Syringe TOP ONE (14:26)
[2022-10-02] MEDS ORDERED: Ibuprofen 600 MG Tab PO ONE (15:14)
[2022-10-02 15:44] VITALS: BP 137/89; PULSE 69
== END 2022-10-02 15:44 | disposition home or self-care (01) ==
LOC: MW.ED 14:00
DX: S01.01XA Laceration without foreign body of scalp, initial encounter (principal); Z23 Encounter for immunization; W22.09XA Striking against other stationary object, initial encounter
CPT/HCPCS: 12002; 90471; 90715; 99283; A9270

== ENCOUNTER 2024-06-10 15:20 | Emergency (ER) | payer MEDICARE, BC ==
[2024-06-10] MEDS ORDERED: Sodium Chloride 0.9% 10 ML Syringe FLUSH PRN (16:24)
[2024-06-10] MEDS ORDERED: Sodium Chloride 0.9% 2.5 ML Syringe FLUSH PRN (16:24)
[2024-06-10] MEDS: Lactated Ringers 1,000 ML IV ONE (16:48)
[2024-06-10 16:59] LABS: BASOPHILS ABSOLUTE AUTO 0.04 K/uL (0.00-0.20); BASOPHILS PERCENT AUTO 0.3 % (0.0-1.0); EOSINOPHILS ABSOLUTE AUTO 0.02 K/uL (0.00-0.45); EOSINOPHILS PERCENT AUTO 0.2 % (0.0-6.0); HEMATOCRIT 41.6 % (37.0-47.0); HEMOGLOBIN 14.7 g/dL (12.0-16.0); IMMATURE GRAN ABSOLUTE AUTO 0.03 K/uL (0.00-0.05); IMMATURE GRAN PERCENT AUTO 0.3 % (0.0-0.4); LYMPHOCYTES ABSOLUTE AUTO 1.29 K/uL (1.00-4.80); LYMPHOCYTES PERCENT AUTO 11.1 % (24.0-44.0); MEAN CORPUSCULAR HEMOGLOBIN 30.1 pg (28.0-32.0); MEAN CORPUSCULAR HGB CONC 35.3 g/dL (32.0-36.0); MEAN CORPUSCULAR VOLUME 85.1 fL (83.0-99.0); MEAN PLATELET VOLUME 9.4 fL (9.4-12.3); MONOCYTES ABSOLUTE AUTO 0.51 K/uL (0.00-0.80); MONOCYTES PERCENT AUTO 4.4 % (0.0-8.0); NEUTROPHILS ABSOLUTE AUTO 9.78 K/uL (1.80-7.70); NEUTROPHILS PERCENT AUTO 83.7 % (41.0-71.0); PLATELET COUNT,PLT 196 K/uL (150-400); RED BLOOD CELL COUNT 4.89 M/uL (4.10-5.30); WHITE BLOOD CELL COUNT,WBC 11.67 K/uL (3.9-11.3)
[2024-06-10 17:25] LABS: A/G RATIO 1.2 (0.9-1.6); BILIRUBIN TOTAL 0.7 mg/dL (0.2-1.0); CALCIUM 9.9 mg/dL (8.5-10.1); CARBON DIOXIDE,CO2 26.1 mmol/L (21.0-32.0); CREATININE 1.5 mg/dL (0.6-1.0); EST CRCL DRUG DOSING (CG) 31.86 mL/min; POTASSIUM,K 4.5 mmol/L (3.5-5.1); PROTEIN TOTAL,TP 7.3 g/dL (6.4-8.2)
[2024-06-10] MEDS: Iopamidol 755 MG/ML 500 ML Multipack Bottle IVPUSH STA (17:43)
[2024-06-10] MEDS: Sodium Chloride 0.9% 500 ML IV SCH (19:10)
[2024-06-10 19:55] VITALS: BP 136/65; PULSE 78
== END 2024-06-10 19:54 | disposition home or self-care (01) ==
LOC: MW.ED 15:20
DX: K52.9 Noninfective gastroenteritis and colitis, unspecified (principal); K92.1 Melena; Z79.899 Other long term (current) drug therapy; Z90.710 Acquired absence of both cervix and uterus
CPT/HCPCS: 36415; 74177; 80053; 83605; 83690; 85025; 96360; 96361; 99284; J7040; J7120; Q9967

== ENCOUNTER 2024-07-22 09:03 | Day surgery (SDC) | payer MEDICARE, BC ==
[~2024-07-22 09:03] MED LIST changes: -Lactated Ringers 1,000 ML IV SCH; -Sodium Chloride 0.9% 10 ML SDV IV PRN; +Sodium Chloride 0.9% 20 ML SDV IV PRN
[2024-07-22] MEDS: Lactated Ringers 1,000 ML IV SCH (09:28)
[2024-07-22] MEDS ORDERED: propofoL 500 MG/50 ML 50 ML ONE (10:43)
[2024-07-22] MEDS ORDERED: Glycopyrrolate 0.2 MG/ML SDV ONE (12:32)
[2024-07-22] MEDS ORDERED: Lidocaine 2% 5 ML SDV ONE (12:55)
[2024-07-22 13:28] VITALS: BP 136/75; PULSE 60
== END 2024-07-22 13:40 | disposition home or self-care (01) ==
LOC: MW.SDS 09:03
PROVIDERS: ATTEND Surgery
DX: Z12.11 Encounter for screening for malignant neoplasm of colon (principal); Q43.8 Other specified congenital malformations of intestine; Z87.19 Personal history of other diseases of the digestive system; Z86.0100 Personal history of colon polyps, unspecified; Z79.899 Other long term (current) drug therapy
CPT/HCPCS: G0105; J1596; J2704; J7120; 00811; J2003

== ENCOUNTER 2024-09-02 09:26 | Day surgery (SDC) | payer MEDICARE, BC ==
[~2024-09-02 09:26] MED LIST changes: +ceFAZolin 2 GM in Sodium Chloride 0.9% 50 ML IV ONE
[2024-09-02] MEDS ORDERED: Ondansetron 4 MG/2 ML SDV IVPUSH PRN (09:54)
[2024-09-02] MEDS ORDERED: Metoclopramide 10 MG/2 ML SDV IVPUSH PRN (09:54)
[2024-09-02] MEDS ORDERED: Morphine 2 MG/ML SYRINGE IVPUSH PRN (09:54)
[2024-09-02] MEDS ORDERED: Albuterol 0.083% 2.5 MG/3 ML Neb Soln NEB PRN (09:54)
[2024-09-02] MEDS ORDERED: HYDROmorphone 1 MG/ML Syringe IVPUSH PRN (09:54)
[2024-09-02] MEDS ORDERED: Naloxone 0.4 MG/ML SDV IVPUSH PRN (09:54)
[2024-09-02] MEDS ORDERED: fentaNYL 50 MCG/ML SDV IVPUSH PRN (09:54)
[2024-09-02] MEDS ORDERED: Phenylephrine HCl In 0.9% NaCl 1 MG/10 ML Syringe IVPUSH PRN (09:54)
[2024-09-02] MEDS: Lactated Ringers 1,000 ML IV SCH (10:03)
[2024-09-02] MEDS ORDERED: Ondansetron 4 MG/2 ML SDV ONE (10:06)
[2024-09-02] MEDS ORDERED: propofoL 500 MG/50 ML 50 ML ONE ×2 (10:06→11:21)
[2024-09-02] MEDS ORDERED: Magnesium Sulfate (4.06 MEQ/ML) 5 GM/10 ML SDV ONE (10:06)
[2024-09-02] MEDS ORDERED: Dexamethasone 4 MG/ML 5 ML MDV ONE (10:06)
[2024-09-02] MEDS ORDERED: Ketorolac 30 MG/ML SDV ONE (10:07)
[2024-09-02] MEDS ORDERED: fentaNYL 100 MCG/2 ML SDV ONE (10:07)
[2024-09-02] MEDS ORDERED: Lidocaine 2% 5 ML SDV ONE (10:07)
[2024-09-02] MEDS ORDERED: Rocuronium Bromide 50 MG/5 ML Syringe ONE ×2 (10:07→11:50)
[2024-09-02] MEDS ORDERED: Sugammadex Sodium 200 MG/2 ML VIAL IV ONE (10:07)
[2024-09-02] MEDS ORDERED: Bupivacaine 0.25% 30 ML SDV ONE (10:08)
[2024-09-02] MEDS ORDERED: Bupivacaine 0.5% 30 ML SDV ONE (10:09)
[2024-09-02] MEDS ORDERED: Propofol 200 MG/20 ML SDV ONE (10:11)
[2024-09-02] MEDS ORDERED: dexmedeTOMIDine HCl 200 MCG/2 ML SDV ONE (10:12)
[2024-09-02] MEDS ORDERED: Sodium Chloride 0.9% 20 ML ONE (10:12)
[2024-09-02] MEDS ORDERED: ceFAZolin 2 GM Vial ONE (10:16)
[2024-09-02 14:15] VITALS: BP 123/62; PULSE 52
== END 2024-09-02 14:35 | disposition home or self-care (01) ==
LOC: MW.SDS 09:26
PROVIDERS: ATTEND Surgery
DX: K80.10 Calculus of gallbladder with chronic cholecystitis without obstruction (principal); K82.8 Other specified diseases of gallbladder
CPT/HCPCS: 47562; 88304; J0665; J0690; J1100; J1885; J2003; J2405; J2704; J3010; J3475; J7120; 00790; 64488; J3490